=== PATIENT | female | born 1935 | race Caucasian/White ===

== ENCOUNTER → 2017-05-23 | Outpatient (CLI) | payer OTHER ==
[2015-09-03 12:00] VITALS: BP 117/70
[~2017-05-23] MED LIST: AMIO100T4 PO; AMIT25TA PO; BUME2TAB PO; CA C1TAB28 PO; CETI10TA16 PO; DOCU-109 PO; DULO60CA6 PO; FLUT16SP2 NS; FURO80TA72 PO; GLIM1TAB2 PO; HYDR-2762 PO; IPRA4AER IH; IRBE150T PO; LANS30CA PO; METO50TA2 PO; MOME17SP NS; NYST15PO9 TP; POLY17PO29 PO; PRAV20TA2 PO; RIVA10TA PO; SPIR25TA3 PO; WARF2TAB7 PO
--- NOTE | 2017-05-23 13:14 | KCIC ---
History: Right leg pain and swelling. Comparison: None. Findings: AP, lateral, and oblique views of the right knee. No acute fracture or dislocation is identified. Mild tricompartment degeneration is seen with marginal osteophyte formation. No joint effusion is identified. AP and lateral views of the right tibia and fibula, 3 images. No acute fracture or dislocation is identified. Tibiotalar degeneration is seen. Impression: No acute osseous abnormality identified in the right knee or right tibia and fibula. Electronically signed by: Chacorta Pratt MD (05/23/2017 1:11 PM) [place] [id number]
--- NOTE | 2017-05-23 13:14 | KCIC ---
CT CHEST WO CONTRAST dated 05/23/2017 10:30 AM Indication: Pulmonary nodule, chronic cough and shortness of air Comparison: There is no previous chest CT available. Technique: Noncontrast CT imaging was performed of the chest, multiplanar reconstruction images submitted. One or more of the following individualized dose reduction techniques were utilized for this examination: 1. Automated exposure control 2. Adjustment of the mA and/or kV according to patient size 3. Use of iterative reconstruction technique. Findings: There is left electronic cardiac device. There has been a median sternotomy. Main pulmonary artery is very dilated at 5.9 cm. There is coronary calcification. There is no lobar infiltrate, pleural or pericardial effusion, pneumothorax. Thoracic aortic caliber is within normal limits. There are some mediastinal nodes, right paratracheal node 1.2 cm short axis dimension somewhat prominent. There are collateral vessels in the region of the left breast. There is noncalcified right middle lobe nodule up to 1 cm axial image 130 series 2. Medial right lower lobe nodule up to 1.1 cm axial image 139 is not excluded although possibly due to volume averaging with the adjacent pulmonary vein and due to atelectasis. There is some centrilobular emphysema. There is bronchiectasis of the lower lobes bilaterally. There is nodular appearance of bilateral breast parenchyma greater on the left. IMPRESSION: 1. There is a 1 cm right middle lobe noncalcified nodule. Medial right lower lobe nodule is not excluded although possibly due to volume averaging with pulmonary vein and due to atelectasis. As per the Fleischner guidelines for pulmonary nodules, 3 month follow-up is recommended. Alternatively, PET/CT could be considered. There is mild mediastinal lymphadenopathy. 2. Main pulmonary artery is very dilated compatible with pulmonary hypertension. There is centrilobular emphysema and bilateral lower lobe bronchiectasis. 3. There is nodular appearance of bilateral breast parenchyma greater on the left better evaluated by mammography and ultrasound if needed if this has not been performed. Electronically signed by: Clinton De La Cruz MD (05/23/2017 1:11 PM) [facility]
== END | disposition home or self-care (01) ==
LOC: KCIC CT 10:06
PROVIDERS: ATTEND Family Medicine
DX: M79.604 Pain in right leg (principal); J43.2 Centrilobular emphysema; J47.9 Bronchiectasis, uncomplicated; I27.2 Other secondary pulmonary hypertension; M79.89 Other specified soft tissue disorders; R91.1 Solitary pulmonary nodule
CPT/HCPCS: 71250; 73562; 73590

== ENCOUNTER → 2017-07-20 | Outpatient (CLI) | payer OTHER ==
[2015-09-03 12:00] VITALS: BP 117/70
[2017-07-20 11:47] LABS: HEMATOCRIT 35.1 % (36.0-47.0)
[2017-07-20 12:09] LABS: ALBUMIN 3.9 g/dL (3.4-5.0); CALCIUM 9.2 mg/dL (8.5-10.1); CREATININE 1.8 mg/dL (0.6-1.0); GFR 26.9; MAGNESIUM 2.3 mg/dL (1.8-2.4); PHOSPHORUS 4.2 mg/dL (2.6-4.7); POTASSIUM 4.3 mmol/L (3.5-5.1)
[2017-07-20 12:10] LABS: % SAT IRON 23 % (15-34); IRON,SERUM 78 ug/dL (50-170)
[2017-07-20 19:13] LABS: PTH INTACT 76 pg/mL (15-65)
== END | disposition home or self-care (01) ==
LOC: LAB 11:10
PROVIDERS: ATTEND Nurse Practitioner Family
DX: I12.9 Hypertensive chronic kidney disease with stage 1 through stage 4 chronic kidney disease, or unspecified chronic kidney disease (principal); N18.3 Chronic kidney disease, stage 3 (moderate); I50.22 Chronic systolic (congestive) heart failure; E11.22 Type 2 diabetes mellitus with diabetic chronic kidney disease; M10.9 Gout, unspecified; D64.9 Anemia, unspecified; R60.0 Localized edema; R25.2 Cramp and spasm; Z68.38 Body mass index [BMI] 38.0-38.9, adult
CPT/HCPCS: 36415; 80069; 82043; 82570; 82607; 82728; 83540; 83550; 83735; 83970; 85014; 85018

== ENCOUNTER → 2017-09-13 | Outpatient (CLI) | payer OTHER ==
[2017-09-13 10:30] LABS: ALBUMIN 3.9 g/dL (3.4-5.0); ANION GAP 10 (6-14); BLOOD UREA NITROGEN 59 mg/dL (7-20); CALCIUM 9.4 mg/dL (8.5-10.1); CARBON DIOXIDE 28 mmol/L (21-32); CHLORIDE 99 mmol/L (98-107); CREATININE 2.1 mg/dL (0.6-1.0); GFR 22.5; GLUCOSE 213 mg/dL (70-99); PHOSPHORUS 3.8 mg/dL (2.6-4.7); POTASSIUM 4.6 mmol/L (3.5-5.1); SODIUM 137 mmol/L (136-145)
== END | disposition home or self-care (01) ==
LOC: LAB 09:43
DX: I12.9 Hypertensive chronic kidney disease with stage 1 through stage 4 chronic kidney disease, or unspecified chronic kidney disease (principal); N18.3 Chronic kidney disease, stage 3 (moderate); E11.22 Type 2 diabetes mellitus with diabetic chronic kidney disease; I50.22 Chronic systolic (congestive) heart failure; R60.0 Localized edema; Z68.38 Body mass index [BMI] 38.0-38.9, adult
CPT/HCPCS: 36415; 80069

== ENCOUNTER 2017-12-18 14:30 | Inpatient (IN) | payer OTHER ==
[2017-12-18 15:55] LABS: ADD MAN DIFF? NO
[2017-12-18 15:58] LABS: BASO # 0.1 x10^3/uL (0.0-0.2); BASO % 1 % (0-3); EOS # 0.3 x10^3/uL (0.0-0.7); EOS % 3 % (0-3); HEMOGLOBIN 11.6 g/dL (12.0-15.5); LYMPH # 1.6 x10^3/uL (1.0-4.8); LYMPH % 16 % (24-48); MEAN CORPUSCULAR HEMOGLOBIN 32 pg (25-35); MEAN CORPUSCULAR HGB CONC 34 g/dL (31-37); MEAN CORPUSCULAR VOLUME 93 fL (79-100); MONO # 0.6 x10^3/uL (0.0-1.1); MONO % 6 % (0-9); NEUT # 7.4 x10^3uL (1.8-7.7); NEUT % 74 % (31-73); PLATELET COUNT 212 x10^3/uL (140-400); RED BLOOD COUNT 3.65 x10^6/uL (3.50-5.40); WHITE BLOOD COUNT 10.1 x10^3/uL (4.0-11.0)
[2017-12-18 17:24] LABS: ANION GAP 11 (6-14); BLOOD UREA NITROGEN 93 mg/dL (7-20); BUN/CREATININE RATIO 30 (6-20); CALCIUM 8.9 mg/dL (8.5-10.1); CARBON DIOXIDE 26 mmol/L (21-32); CHLORIDE 99 mmol/L (98-107); CREATININE 3.1 mg/dL (0.6-1.0); GFR 14.4; GLUCOSE 154 mg/dL (70-99); SODIUM 136 mmol/L (136-145)
[2017-12-18 17:29] LABS: ALBUMIN 3.6 g/dL (3.4-5.0); ALK PHOS 124 U/L (46-116); ALT (SGPT) 25 U/L (14-59); AST (SGOT) 14 U/L (15-37); TOTAL BILIRUBIN 0.6 mg/dL (0.2-1.0); TOTAL PROTEIN 7.2 g/dL (6.4-8.2)
[2017-12-18 18:59] LABS: BILIRUBIN,URINE NEGATIVE (NEG); CLARITY,URINE CLEAR; COLOR,URINE YELLOW; GLUCOSE,URINE NEGATIVE (NEG); NITRITE,URINE NEGATIVE (NEG); PROTEIN,URINE NEGATIVE (NEG-TRACE); UROBILINOGEN,URINE 0.2 mg/dL (0.2 mg/dL)
[2017-12-18 19:19] LABS: BACTERIA,URINE MANY /HPF (0-FEW); HYALINE CASTS, URINE MODERATE /HPF; RBC,URINE 0 /HPF (0-2); SQUAMOUS EPITHELIAL CELL,UR MANY /LPF; WBC,URINE 20-40 /HPF (0-4)
[2017-12-18] MEDS: IV NORMAL SALINE 500ML BAG 500 ML IV (19:24)
[2017-12-18] MEDS: ONDANSETRON PF 4 MG/2 ML VIAL. IV (19:46)
[2017-12-18] MEDS: MORPHINE SULFATE 4 MG/ML DISP.SYRIN. IV (19:47)
[2017-12-18] MEDS: IV NORMAL SALINE 1000ML BAG 1,000 ML IV (20:40)
[2017-12-18] MEDS ORDERED: ACETAMINOPHEN 325 MG TABLET. PO (21:00)
[2017-12-18 21:09] LABS: POC GLUCOSE 117 mg/dL (70-99)
[2017-12-18] MEDS: ATORVASTATIN CALCIUM 10 MG TABLET. PO (21:44)
[2017-12-18] MEDS: DOCUSATE SODIUM 100 MG CAPSULE. PO (21:44)
[2017-12-18] MEDS: METOPROLOL TART IMMED RELEASE 50 MG TABLET. PO (21:45)
[2017-12-18] MEDS: NYSTATIN TOPICAL POWDER 15GM BOTTLE. TP (21:53)
[2017-12-18] MEDS: ENOXAPARIN 30 MG/0.3 ML SYRINGE. SQ (21:53)
[2017-12-18] MEDS: cefTRIAXone IV Push 1 GM VIAL. IVP (21:53)
[2017-12-18] MEDS ORDERED: DEXTROSE 50% 25 GM / 50ML DISP.SYRIN. IV (22:45)
[2017-12-19] MEDS: IV NORMAL SALINE 1000ML BAG 1,000 ML IV ×2 (04:56→10:15)
[2017-12-19 06:56] LABS: ANION GAP 15 (6-14); BLOOD UREA NITROGEN 90 mg/dL (7-20); CALCIUM 8.7 mg/dL (8.5-10.1); CARBON DIOXIDE 23 mmol/L (21-32); CHLORIDE 101 mmol/L (98-107); CREATININE 2.5 mg/dL (0.6-1.0); GFR 18.4; GLUCOSE 191 mg/dL (70-99); POTASSIUM 4.8 mmol/L (3.5-5.1); SODIUM 139 mmol/L (136-145)
[2017-12-19] MEDS: IPRATRPIUM/ALBUTEROL 0.5/2.5MG 3 ML NEBU. NEB (07:10)
[2017-12-19 08:26] LABS: POC GLUCOSE 147 mg/dL (70-99)
[2017-12-19] MEDS: CHOLECALCIFEROL (VITAMIN D3) 1,000 UNIT TABLET PO (08:56)
[2017-12-19] MEDS: ASPIRIN ENTERIC COATED 81 MG TABLET.DR. PO (08:56)
[2017-12-19] MEDS: DOCUSATE SODIUM 100 MG CAPSULE. PO ×3 (08:56→21:25)
[2017-12-19] MEDS: METOPROLOL TART IMMED RELEASE 50 MG TABLET. PO ×2 (08:57→21:25)
[2017-12-19] MEDS: FLUTICASONE 50MCG/NASAL SPRAY 16GM BOTTLE. NS (08:59)
[2017-12-19] MEDS: NYSTATIN TOPICAL POWDER 15GM BOTTLE. TP ×3 (08:59→22:18)
[2017-12-19] MEDS: POLYETHYLENE GLYCOL 3350 17 GM PACKET. PO (09:00)
[2017-12-19 11:06] LABS: POC GLUCOSE 190 mg/dL (70-99)
[2017-12-19 11:45] LABS: THYROID STIM HORMONE (TSH) 3.127 uIU/mL (0.358-3.74)
[2017-12-19] MEDS ORDERED: ALBUTEROL SULFATE 2.5 MG/3 ML NEBU. NEB (12:00)
[2017-12-19 14:36] LABS: POC GLUCOSE 143 mg/dL (70-99)
[2017-12-19 16:49] LABS: POC GLUCOSE 150 mg/dL (70-99)
[2017-12-19] MEDS: cefTRIAXone IV Push 1 GM VIAL. IVP (21:24)
[2017-12-19] MEDS: LACTOBACILLUS RHAMNOSUS GG 1 CAPSULE. PO (21:26)
[2017-12-19] MEDS: ATORVASTATIN CALCIUM 10 MG TABLET. PO (21:26)
[2017-12-19] MEDS: ENOXAPARIN 30 MG/0.3 ML SYRINGE. SQ (21:27)
[2017-12-20 00:57] LABS: POC GLUCOSE 154 mg/dL (70-99)
[2017-12-20 05:16] LABS: ADD MAN DIFF? NO
[2017-12-20 05:22] LABS: BASO % 1 % (0-3); EOS # 0.1 x10^3/uL (0.0-0.7); EOS % 2 % (0-3); HEMATOCRIT 32.8 % (36.0-47.0); HEMOGLOBIN 10.9 g/dL (12.0-15.5); LYMPH # 0.8 x10^3/uL (1.0-4.8); LYMPH % 12 % (24-48); MEAN CORPUSCULAR HEMOGLOBIN 31 pg (25-35); MEAN CORPUSCULAR HGB CONC 33 g/dL (31-37); MEAN CORPUSCULAR VOLUME 93 fL (79-100); MONO # 0.4 x10^3/uL (0.0-1.1); MONO % 5 % (0-9); NEUT # 5.4 x10^3uL (1.8-7.7); NEUT % 80 % (31-73); PLATELET COUNT 163 x10^3/uL (140-400); RED BLOOD COUNT 3.51 x10^6/uL (3.50-5.40); WHITE BLOOD COUNT 6.7 x10^3/uL (4.0-11.0)
[2017-12-20 05:49] LABS: ALBUMIN 3.4 g/dL (3.4-5.0); ALBUMIN/GLOBULIN RATIO 0.9 (1.0-1.7); ALK PHOS 129 U/L (46-116); ALT (SGPT) 20 U/L (14-59); ANION GAP 10 (6-14); AST (SGOT) 16 U/L (15-37); BLOOD UREA NITROGEN 46 mg/dL (7-20); BUN/CREATININE RATIO 31 (6-20); CALCIUM 9.5 mg/dL (8.5-10.1); CARBON DIOXIDE 27 mmol/L (21-32); CHLORIDE 107 mmol/L (98-107); CREATININE 1.5 mg/dL (0.6-1.0); GFR 33.2; GLUCOSE 154 mg/dL (70-99); POTASSIUM 3.9 mmol/L (3.5-5.1); SODIUM 144 mmol/L (136-145); TOTAL BILIRUBIN 0.6 mg/dL (0.2-1.0)
[2017-12-20 07:35] LABS: POC GLUCOSE 127 mg/dL (70-99)
[2017-12-20] MEDS: POLYETHYLENE GLYCOL 3350 17 GM PACKET. PO (09:00)
[2017-12-20] MEDS: FLUTICASONE 50MCG/NASAL SPRAY 16GM BOTTLE. NS (09:13)
[2017-12-20] MEDS: DOCUSATE SODIUM 100 MG CAPSULE. PO ×3 (09:14→20:31)
[2017-12-20] MEDS: LACTOBACILLUS RHAMNOSUS GG 1 CAPSULE. PO ×2 (09:14→20:31)
[2017-12-20] MEDS: ASPIRIN ENTERIC COATED 81 MG TABLET.DR. PO (09:15)
[2017-12-20] MEDS: CHOLECALCIFEROL (VITAMIN D3) 1,000 UNIT TABLET PO (09:16)
[2017-12-20] MEDS: METOPROLOL TART IMMED RELEASE 50 MG TABLET. PO ×2 (09:16→20:31)
[2017-12-20] MEDS: NYSTATIN TOPICAL POWDER 15GM BOTTLE. TP ×3 (09:17→20:31)
[2017-12-20 11:43] LABS: POC GLUCOSE 135 mg/dL (70-99)
[2017-12-20 14:25] LABS: ADD MAN DIFF? NO
[2017-12-20 14:28] LABS: BASO # 0.1 x10^3/uL (0.0-0.2); BASO % 1 % (0-3); EOS # 0.2 x10^3/uL (0.0-0.7); EOS % 2 % (0-3); HEMATOCRIT 36.1 % (36.0-47.0); LYMPH % 14 % (24-48); MEAN CORPUSCULAR HEMOGLOBIN 31 pg (25-35); MEAN CORPUSCULAR HGB CONC 33 g/dL (31-37); MEAN CORPUSCULAR VOLUME 94 fL (79-100); MONO # 0.4 x10^3/uL (0.0-1.1); MONO % 6 % (0-9); NEUT # 5.7 x10^3uL (1.8-7.7); NEUT % 77 % (31-73); PLATELET COUNT 174 x10^3/uL (140-400); RED BLOOD COUNT 3.85 x10^6/uL (3.50-5.40); RED CELL DISTRIBUTION WIDTH 16.9 % (11.5-14.5); WHITE BLOOD COUNT 7.4 x10^3/uL (4.0-11.0)
[2017-12-20 14:43] LABS: ALBUMIN 3.7 g/dL (3.4-5.0); ANION GAP 11 (6-14); BLOOD UREA NITROGEN 40 mg/dL (7-20); CALCIUM 9.3 mg/dL (8.5-10.1); CARBON DIOXIDE 26 mmol/L (21-32); CHLORIDE 106 mmol/L (98-107); CREATININE 1.5 mg/dL (0.6-1.0); GFR 33.2; GLUCOSE 152 mg/dL (70-99); PHOSPHORUS 2.8 mg/dL (2.6-4.7); POTASSIUM 3.9 mmol/L (3.5-5.1); SODIUM 143 mmol/L (136-145)
[2017-12-20 16:38] LABS: POC GLUCOSE 132 mg/dL (70-99)
[2017-12-20 20:28] LABS: POC GLUCOSE 128 mg/dL (70-99)
[2017-12-20] MEDS: ENOXAPARIN 30 MG/0.3 ML SYRINGE. SQ (20:31)
[2017-12-20] MEDS: ATORVASTATIN CALCIUM 10 MG TABLET. PO (20:31)
[2017-12-20] MEDS: cefTRIAXone IV Push 1 GM VIAL. IVP (20:31)
[2017-12-20 22:14] LABS: CALCIUM PTH 9.7 mg/dL (8.7-10.3); CREATININE PTH 1.29 mg/dL (0.57-1.00); PHOSPHORUS PTH 2.6 mg/dL (2.5-4.5); PTH INTACT 27 pg/mL (15-65); eGFR AFRICAN-AMER 45 (>59); eGFR NON AFRICAN-AMER 39 (>59)
[2017-12-21] MEDS: CHOLECALCIFEROL (VITAMIN D3) 1,000 UNIT TABLET PO (08:27)
[2017-12-21] MEDS: FLUTICASONE 50MCG/NASAL SPRAY 16GM BOTTLE. NS (08:27)
[2017-12-21] MEDS: METOPROLOL TART IMMED RELEASE 50 MG TABLET. PO (08:28)
[2017-12-21] MEDS: LACTOBACILLUS RHAMNOSUS GG 1 CAPSULE. PO (08:28)
[2017-12-21] MEDS: DOCUSATE SODIUM 100 MG CAPSULE. PO ×2 (08:28→14:00)
[2017-12-21] MEDS: ASPIRIN ENTERIC COATED 81 MG TABLET.DR. PO (08:28)
[2017-12-21] MEDS: POLYETHYLENE GLYCOL 3350 17 GM PACKET. PO (08:29)
[2017-12-21] MEDS: NYSTATIN TOPICAL POWDER 15GM BOTTLE. TP ×2 (08:30→14:07)
[2017-12-21 11:48] LABS: POC GLUCOSE 116 mg/dL (70-99)
[2017-12-21 13:23] LABS: ALBUMIN 3.6 g/dL (3.4-5.0); ALBUMIN/GLOBULIN RATIO 1.2 (1.0-1.7); ALK PHOS 132 U/L (46-116); ALT (SGPT) 27 U/L (14-59); ANION GAP 6 (6-14); AST (SGOT) 24 U/L (15-37); BLOOD UREA NITROGEN 27 mg/dL (7-20); BUN/CREATININE RATIO 21 (6-20); CALCIUM 9.4 mg/dL (8.5-10.1); CARBON DIOXIDE 29 mmol/L (21-32); CHLORIDE 105 mmol/L (98-107); CREATININE 1.3 mg/dL (0.6-1.0); GFR 39.2; GLUCOSE 171 mg/dL (70-99); SODIUM 140 mmol/L (136-145); TOTAL BILIRUBIN 0.7 mg/dL (0.2-1.0); TOTAL PROTEIN 6.7 g/dL (6.4-8.2)
== END 2017-12-21 16:00 | disposition home health service (06) | DRG 917 ==
LOC: ER 14:30 → 5 NORTH 18:10
DX: T50.901A Poisoning by unspecified drugs, medicaments and biological substances, accidental (unintentional), initial encounter (principal); G93.41 Metabolic encephalopathy; N17.9 Acute kidney failure, unspecified; N39.0 Urinary tract infection, site not specified; I42.9 Cardiomyopathy, unspecified; E11.40 Type 2 diabetes mellitus with diabetic neuropathy, unspecified; E11.22 Type 2 diabetes mellitus with diabetic chronic kidney disease; E11.51 Type 2 diabetes mellitus with diabetic peripheral angiopathy without gangrene; I48.91 Unspecified atrial fibrillation; E78.00 Pure hypercholesterolemia, unspecified; F03.90 Unspecified dementia, unspecified severity, without behavioral disturbance, psychotic disturbance, mood disturbance, and anxiety; E78.5 Hyperlipidemia, unspecified; I27.20 Pulmonary hypertension, unspecified; E55.9 Vitamin D deficiency, unspecified; E66.9 Obesity, unspecified; N18.9 Chronic kidney disease, unspecified; F32.9 Major depressive disorder, single episode, unspecified; R47.81 Slurred speech; I25.10 Atherosclerotic heart disease of native coronary artery without angina pectoris; I12.9 Hypertensive chronic kidney disease with stage 1 through stage 4 chronic kidney disease, or unspecified chronic kidney disease; J40 Bronchitis, not specified as acute or chronic; J47.9 Bronchiectasis, uncomplicated; Z90.49 Acquired absence of other specified parts of digestive tract; Z95.1 Presence of aortocoronary bypass graft; Z79.82 Long term (current) use of aspirin; Z90.710 Acquired absence of both cervix and uterus; Z91.81 History of falling; Z91.041 Radiographic dye allergy status
CPT/HCPCS: 36415; 51701; 70450; 71045; 71250; 76770; 78070; 80048; 80053; 80069; 81001; 82306; 82962; 83970; 84443; 85025; 87040; 87086; 93005; 93306; 94640; 94760; 95816; 96374; 97116-GP; 97162-GP; 97166-GO; 97530-GP; 97535-GO; 99285-25; A9500; J0696; J1650; J7030; J7040; J7620

== ENCOUNTER 2018-06-25 14:19 | Emergency (ER) | payer MEDICARE, OTHER ==
[~2018-06-25] VITALS: Ht 165.1 cm; Wt 104.3 kg
[~2018-06-25 14:19] MED LIST changes: +ALLO300T PO; +ASPI-482 PO; +CIPR250T PO; +DILT120C80 PO; +FURO20TA3 PO; +METO100T7 PO; -METO50TA2 PO; +METO50TA6 PO; +POTA10TA12 PO; -SPIR25TA3 PO; +SPIR25TA5 PO; +VALS40TA2 PO; -WARF2TAB7 PO; +WARF2TAB96 PO
--- NOTE | 2018-06-25 16:26 | RAD ---
CT HEAD WITHOUT CONTRAST 06/25/2018 4:03 PM Indication: FALL PREV SENT Comparison: CT head without contrast December 19, 2017 Procedure: Multidetector CT imaging of the head was performed without the administration of contrast. Findings: There is no evidence of acute intracranial hemorrhage. There is no evidence of acute territorial infarction. Global atrophic changes are stable. Periventricular deep white matter hypoattenuation consistent with chronic small vessel disease is also unchanged. No mass effect or midline shift is identified . The ventricles and basilar cisterns have a stable appearance. No osseous changes are identified. Impression: No evidence of acute intracranial abnormality or acute change from prior exam CT DOSING PQRS STATEMENT: One or more of the following individualized dose reduction techniques were utilized for this examination: 1. Automated exposure control 2. Adjustment of the mA and/or kV according to patient size 3. Use of iterative reconstruction technique Electronically signed by: Osabldo Doe MD (06/25/2018 4:22 PM) [facility]
--- NOTE | 2018-06-25 16:48 | RAD ---
Indication: Trauma TECHNIQUE: Multiple views of the right hip joint Comparison: None FINDINGS/ impression: Status post total left hip arthroplasty. No acute fracture or dislocation. SI joints within normal limits. Electronically signed by: Naif Cabrera DO (06/25/2018 4:45 PM) [facility]
--- NOTE | 2018-06-25 16:51 | RAD ---
3 views of the lumbar spine 06/25/2018 INDICATION: Low back pain following fall. COMPARISON STUDY: None available FINDINGS: Some rotation noted on AP view. No evidence of acute fracture or acute alignment abnormality is identified. Vertebral body heights appear maintained with respect to comparison study. Facet arthrosis and degenerative disc space disease is similar. Mild grade 1 anterolisthesis is seen at L4-L5 and L5 -S1. Left hip arthroplasty noted. Cholecystectomy is noted. No acute soft tissue changes are seen. IMPRESSION: Similar degenerative changes of the lumbar spine without evidence of acute fracture or alignment abnormality Electronically signed by: Osbaldo Doe MD (06/25/2018 4:48 PM) [facility]
--- NOTE | 2018-06-25 16:51 | RAD ---
History: Trauma, fall today, pain. Comparison: None. Findings: AP, lateral, and oblique views of the right foot. Mild-moderate hallux valgus is seen. Mild-moderate 1st MTP degeneration is present. No acute fracture or dislocation is identified. Chronic cortical/periosteal thickening is seen involving the 2nd through 4th metatarsals. Large Achilles tendon insertional enthesophyte is seen. Small plantar calcaneal enthesophyte is present. Dorsal talar osteophyte is seen. Impression: No acute osseous traumatic injury identified. Electronically signed by: Chacorta Pratt MD (06/25/2018 4:48 PM) [place] [id number]
--- NOTE | 2018-06-25 16:54 | RAD ---
3 views right hand 06/25/2018 4:10 PM Indication: ER PATIENT. TRAUMA FALL TODAY. PAIN IN THE RIGHT HAND. NO PRIORS Comparison: None Findings: There is no acute fracture or dislocation. Articular surfaces are uninterrupted. Soft tissues are unremarkable. Impression: No evidence of acute osseous abnormality. Electronically signed by: Osbaldo Doe MD (06/25/2018 4:51 PM) [facility]
--- NOTE | 2018-06-25 17:14 | PHYS DOC ---
Past Medical History Past Medical History: A-Fib, Arrhythmia, Diabetes-Type II, High Cholesterol, Hypertension, Renal Disease, Other Additional Past Medical Histor: NEUROPATHY,PAD Past Surgical History: Cholecystectomy, Coronary Bypass Surgery, Hysterectomy, Pacemaker Alcohol Use: None Drug Use: None Adult General Chief Complaint Chief Complaint: MECHANICAL FALL HPI HPI Patient is a 83 year old female with a history of diabetes2, hypertension, A. fib, high cholesterol, who presents today to be evaluated status post falling. Patient states on Sunday last week she was sitting in her wheelchair when she fell, patient denies hitting her head on the ground, denies any neck pain. She is complaining of mild right hand pain with swelling, right foot pain and right low back pain. Patient states the pain is worse on weight-bearing as well as range of motion. Review of Systems Review of Systems Constitutional: Denies fever or chills [] Eyes: Denies change in visual acuity, redness, or eye pain [] HENT: Denies nasal congestion or sore throat [] Respiratory: Denies cough or shortness of breath [] Cardiovascular: No additional information not addressed in HPI [] GI: Denies abdominal pain, nausea, vomiting, bloody stools or diarrhea [] : Denies dysuria or hematuria [] Musculoskeletal: Reports low back pain, right hand pain with swelling. Integument: Denies rash or skin lesions [] Neurologic: Denies headache, focal weakness or sensory changes [] All other systems were reviewed and found to be within normal limits, except as documented in this note. Allergies Allergies Allergies Coded Allergies Type Severity Reaction Last Updated Verified Iodinated Contrast- Oral and IV Dye Allergy Intermediate HIVES 09/03/15 Yes codeine Allergy Intermediate 12/18/17 No Physical Exam Physical Exam Constitutional: Well developed, well nourished, no acute distress, non-toxic appearance. [] HENT: Normocephalic, atraumatic, bilateral external ears normal, oropharynx moist, no oral exudates, nose normal. [] Eyes: PERRLA, EOMI, conjunctiva normal, no discharge. [] Neck: Normal range of motion, no tenderness, supple, no stridor. [] Cardiovascular:Heart rate regular rhythm, no murmur [] Lungs & Thorax: Bilateral breath sounds clear to auscultation [] Abdomen: Bowel sounds normal, soft, no tenderness, no masses, no pulsatile masses. [] Skin: Warm, dry, no erythema, no rash. [] Back: Slight tenderness on palpation of the right SI joint, no midline lumbar spine tenderness, no CVA tenderness. [] Extremities: Right hand with mild soft tissue swelling on the dorsal aspect. No tenderness to the scaphoid, no tenderness to the hand. Full range of motion to the right hand. Full range of motion to the right fingers. Adequate radial medial and ulnar sensation to the right upper extremity. Cap refill less than 2 seconds the right fingers. Sensation intact to the right upper extremity. Bilateral lower extremities with chronic lymphedema. Tenderness on palpation of the right arc of foot no tenderness directly on the navicular bone or the base of the fifth metatarsal of the right foot. Full range of motion to the right foot. Neurologic: Alert and oriented X 3, normal motor function, normal sensory function, no focal deficits noted. [] Psychologic: Affect normal, judgement normal, mood normal. [] Current Patient Data Vital Signs Vital Signs Date Time Temp Pulse Resp B/P (MAP) Pulse Ox O2 Delivery O2 Flow Rate FiO2 06/25/18 15:40 97.8 88 18 142/62 (88) 97 Room Air 97.8 EKG EKG [] Radiology/Procedures Radiology/Procedures []PROCEDURE: FOOT RIGHT 3V History: Trauma, fall today, pain. Comparison: None. Findings: AP, lateral, and oblique views of the right foot. Mild-moderate hallux valgus is seen. Mild-moderate 1st MTP degeneration is present. No acute fracture or dislocation is identified. Chronic cortical/periosteal thickening is seen involving the 2nd through 4th metatarsals. Large Achilles tendon insertional enthesophyte is seen. Small plantar calcaneal enthesophyte is present. Dorsal talar osteophyte is seen. Impression: No acute osseous traumatic injury identified. Electronically signed by: Chacorta Oliver MD (06/25/2018 4:48 PM) [facility] DICTATED and SIGNED BY: CHACORTA OLIVER MD DATE: 06/25/18 1644 PROCEDURE: HAND RIGHT 3V 3 views right hand 06/25/2018 4:10 PM Indication: ER PATIENT. TRAUMA FALL TODAY. PAIN IN THE RIGHT HAND. NO PRIORS Comparison: None Findings: There is no acute fracture or dislocation. Articular surfaces are uninterrupted. Soft tissues are unremarkable. Impression: No evidence of acute osseous abnormality. Electronically signed by: Osbaldo Santos MD (06/25/2018 4:51 PM) [facility] DICTATED and SIGNED BY: OSBALDO SANTOS MD DATE: 06/25/181648 PROCEDURE: CT HEAD WO CONTRAST CT HEAD WITHOUT CONTRAST 06/25/2018 4:03 PM Indication: FALL PREV SENT Comparison: CT head without contrast December 19, 2017 Procedure: Multidetector CT imaging of the head was performed without the administration of contrast. Findings: There is no evidence of acute intracranial hemorrhage. There is no evidence of acute territorial infarction. Global atrophic changes are stable. Periventricular deep white matter hypoattenuation consistent with chronic small vessel disease is also unchanged. No mass effect or midline shift is identified . The ventricles and basilar cisterns have a stable appearance. No osseous changes are identified. Impression: No evidence of acute intracranial abnormality or acute change from prior exam CT DOSING PQRS STATEMENT: One or more of the following individualized dose reduction techniques were utilized for this examination: 1. Automated exposure control 2. Adjustment of the mA and/or kV according to patient size 3. Use of iterative reconstruction technique Electronically signed by: Osbaldo Santos MD (06/25/2018 4:22 PM) [facility] DICTATED and SIGNED BY: OSBALDO SANTOS MD DATE: 06/25/188 PROCEDURE: HIP RIGHT 2V WITH PELVIS Indication: Trauma TECHNIQUE: Multiple views of the right hip joint Comparison: None FINDINGS/ impression: Status post total left hip arthroplasty. No acute fracture or dislocation. SI joints within normal limits. Electronically signed by: Naif Cabrera DO (06/25/2018 4:45 PM) [facility] DICTATED and SIGNED BY: NAIF CABRERA DO DATE: 06/25/181642 Course & Med Decision Making Course & Med Decision Making Pertinent Labs and Imaging studies reviewed. (See chart for details) This is a 83-year-old female patient who presents to the ED today status post falling on Sunday which is 5 days ago, she is complaining of right hand pain and swelling, low back pain. No loss of consciousness, CT of the head is negative for any acute findings. Lumbar spine x-rays, right hip x-rays with pelvic, right hand x-rays interpreted by radiologist are negative for any acute findings. Patient was discharged with instructions to follow-up with the PCP as needed. Given prescription for diclofenac cream. Ice elevation encouraged. Dragon Disclaimer Dragon Disclaimer This electronic medical record was generated, in whole or in part, using a voice recognition dictation system. Departure Departure Impression: Primary Impression: Fall from wheelchair Additional Impressions: Lumbar contusion Sprain of right hand Right foot pain Disposition: HOME, SELF-CARE Condition: STABLE Referrals: RORO BARON MD (PCP) Follow-up in one week Patient Instructions: Contusion, Cogh-do-Vstr, Fall Prevention and Home Safety , Joint Sprain Additional Instructions: You were evaluated in the emergency room after falling. Your x-rays and CT of the head are negative for any acute findings. Follow-up with primary care doctor in the next 1-2 weeks. Ice elevate the affected areas. Scripts Diclofenac Sodium (VOLTAREN) 100 Gm Gel..gram. 1 GM TP QID, #100 GM 0 Refills Prov: JUAN MIGUEL PALMER APRN 06/25/18 Problem Qualifiers Primary Impression: Fall from wheelchair Encounter type: initial encounter Qualified Codes: W05.0XXA - Fall from non- moving wheelchair, initial encounter Additional Impressions: Lumbar contusion Encounter type: initial encounter Qualified Codes: S30.0XXA - Contusion of lower back and pelvis, initial encounter Sprain of right hand Encounter type: initial encounter Qualified Codes: S63.91XA - Sprain of unspecified part of right wrist and hand, initial encounter JUAN MIGUEL PALMER APRN Jun 25, 2018 17:14
[2018-06-25] MEDS ORDERED: DICL100G18 TP (17:35)
[2018-06-25 17:40] VITALS: BP 120/51
== END 2018-06-25 17:45 | disposition home or self-care (01) ==
LOC: ER 14:19
DX: S63.91XA Sprain of unspecified part of right wrist and hand, initial encounter (principal); S30.0XXA Contusion of lower back and pelvis, initial encounter; M79.671 Pain in right foot; E78.00 Pure hypercholesterolemia, unspecified; E11.40 Type 2 diabetes mellitus with diabetic neuropathy, unspecified; I10 Essential (primary) hypertension; I48.91 Unspecified atrial fibrillation; Z90.710 Acquired absence of both cervix and uterus; Z95.5 Presence of coronary angioplasty implant and graft; Z95.0 Presence of cardiac pacemaker; Z90.49 Acquired absence of other specified parts of digestive tract; Z88.5 Allergy status to narcotic agent; Z91.041 Radiographic dye allergy status; W05.0XXA Fall from non-moving wheelchair, initial encounter; Y93.89 Activity, other specified; Y92.89 Other specified places as the place of occurrence of the external cause; Y99.8 Other external cause status
CPT/HCPCS: 70450; 72100; 73130; 73502; 73630; 99284-25

== ENCOUNTER → 2018-07-17 | Outpatient (CLI) | payer OTHER ==
[2018-06-25 17:40] VITALS: BP 120/51
[~2018-07-17] MED LIST changes: +DICL100G18 TP; +LEVO500T59 PO
[2018-07-17 12:48] LABS: BASO # 0.1 x10^3/uL (0.0-0.2); BASO % 1 % (0-3); EOS # 0.3 x10^3/uL (0.0-0.7); EOS % 3 % (0-3); HEMATOCRIT 37.2 % (36.0-47.0); HEMOGLOBIN 12.7 g/dL (12.0-15.5); LYMPH # 1.6 x10^3/uL (1.0-4.8); LYMPH % 16 % (24-48); MEAN CORPUSCULAR HEMOGLOBIN 30 pg (25-35); MEAN CORPUSCULAR HGB CONC 34 g/dL (31-37); MEAN CORPUSCULAR VOLUME 88 fL (79-100); MONO # 0.6 x10^3/uL (0.0-1.1); MONO % 6 % (0-9); NEUT # 7.2 x10^3uL (1.8-7.7); NEUT % 74 % (31-73); PLATELET COUNT 185 x10^3/uL (140-400); RED BLOOD COUNT 4.21 x10^6/uL (3.50-5.40); RED CELL DISTRIBUTION WIDTH 15.4 % (11.5-14.5); WHITE BLOOD COUNT 9.8 x10^3/uL (4.0-11.0)
[2018-07-17 13:09] LABS: ALBUMIN 3.5 g/dL (3.4-5.0); CREATININE 1.6 mg/dL (0.6-1.0); GFR 30.8; MAGNESIUM 1.9 mg/dL (1.8-2.4); PHOSPHORUS 3.9 mg/dL (2.6-4.7); POTASSIUM 3.7 mmol/L (3.5-5.1)
[2018-07-17 23:11] LABS: CREAT RD UR 27.3 mg/dL (Not Estab.); MICRO CREAT RATIO 34.4 mg/g creat (0.0-30.0); MICROALB RD UR 9.4 ug/mL (Not Estab.); UR PROTEIN RD 4.7 mg/dL (Not Estab.)
[2018-07-18 00:10] LABS: CALCIUM PTH 9.3 mg/dL (8.7-10.3); CREATININE PTH 1.36 mg/dL (0.57-1.00); PHOSPHORUS PTH 3.9 mg/dL (2.5-4.5); PTH INTACT 81 pg/mL (15-65)
== END | disposition home or self-care (01) ==
LOC: LAB 12:22
PROVIDERS: ATTEND Internal Medicine Nephrology
DX: I13.0 Hypertensive heart and chronic kidney disease with heart failure and stage 1 through stage 4 chronic kidney disease, or unspecified chronic kidney disease (principal); E11.22 Type 2 diabetes mellitus with diabetic chronic kidney disease; I50.22 Chronic systolic (congestive) heart failure; N18.3 Chronic kidney disease, stage 3 (moderate); R60.0 Localized edema; Z68.38 Body mass index [BMI] 38.0-38.9, adult
CPT/HCPCS: 36415; 80069; 82043; 82570; 83735; 83970; 84156; 85025

== ENCOUNTER 2018-07-18 10:52 | Emergency (ER) | payer OTHER ==
[~2018-07-18] VITALS: Ht 165.1 cm; Wt 99.8 kg
[~2018-07-18 10:52] MED LIST changes: -LEVO500T59 PO
[2018-07-18] MEDS ORDERED: IV NORMAL SALINE 500ML BAG 500 ML IV ONE (11:30)
[2018-07-18] MEDS ORDERED: LEVO500T59 PO (12:07)
[2018-07-18 12:12] VITALS: BP 155/68
--- NOTE | 2018-07-18 12:54 | PHYS DOC ---
Past Medical History Past Medical History: A-Fib, Arrhythmia, Diabetes-Type II, High Cholesterol, Hypertension, Renal Disease, Other Additional Past Medical Histor: NEUROPATHY,PAD Past Surgical History: Cholecystectomy, Coronary Bypass Surgery, Hysterectomy, Pacemaker Alcohol Use: None Drug Use: None Adult General Chief Complaint Chief Complaint: PAIN ON URINATION [facility] HPI Patient is a 83 year old female who presents with dysuria. Patient began having dysuria over the last 24 hours. Incidentally, she had labs done at this hospital yesterday. She also had a urinalysis. Review of the electronic medical record reveals that the patient did have findings of urinary tract infection. According to family, the patient's sleep routine was disrupted yesterday as she had a very busy day in preparation for the holiday. Patient did have some confusion about the time of day around 2:00 this morning. She does live in an assisted care facility. She is accompanied by her daughter today who states she is at baseline health currently and has no acute concerns regarding any type of altered mental status. Denies fever or chills. No abdominal pain. She does have urinary frequency and dysuria which is not normal. Review of Systems Review of Systems Constitutional: Denies fever Eyes: Denies HENT: Denies Respiratory: Denies cough Cardiovascular: No additional information not addressed in HPI GI: Denies abdominal pain : dysuria, urinary frequency Musculoskeletal: Denies back pain Integument: Denies rash Neurologic: Denies headache All other systems were reviewed and found to be within normal limits, except as documented in this note. Current Medications Current Medications Current Medications Medications (Trade) Dose Ordered Sig/Miley Start Time Stop Time Status Last Admin Dose Admin Ceftriaxone Sodium 50 ml @ 100 mls/hr 1X ONCE 07/18/18 11:30 07/18/18 11:59 DC 07/18/18 11:35 100 MLS/HR Sodium Chloride 500 ml @ 500 mls/hr 1X ONCE 07/18/18 11:30 07/18/18 12:29 DC 07/18/18 11:38 500 MLS/HR Allergies Allergies Allergies Coded Allergies Type Severity Reaction Last Updated Verified Iodinated Contrast- Oral and IV Dye Allergy Intermediate HIVES 09/03/15 Yes codeine Allergy Intermediate 12/18/17 No Physical Exam Physical Exam Constitutional: Well developed, well nourished, no acute distress, non-toxic appearance HENT: Normocephalic, atraumatic, bilateral external ears normal, oropharynx moist Eyes: PERRLA, EOMI, conjunctiva normal Neck: Normal range of motion, no tenderness Cardiovascular:Heart rate regular rhythm, no murmur Lungs & Thorax: Bilateral breath sounds clear Abdomen: Bowel sounds normal, soft, no tenderness Skin: Warm, dry, no erythema Back: No tenderness, no CVA tenderness Extremities: No edema Neurologic: Alert and oriented X 3, normal neuro examination Psychologic: Affect normal Current Patient Data Vital Signs Vital Signs Date Time Temp Pulse Resp B/P (MAP) Pulse Ox O2 Delivery O2 Flow Rate FiO2 07/18/18 12:12 74 155/68 (97) 95 Room Air 07/18/18 11:03 16 07/18/18 10:52 98.5 98.5 EKG EKG [] Radiology/Procedures Radiology/Procedures [] Course & Med Decision Making Course & Med Decision Making Pertinent Labs and Imaging studies reviewed. (See chart for details) Department for also UTI. The urine specimen which was collected yesterday was indeed infected. Today, no new UA was completed. Urine culture was added to her lab panel. In the ER, she was given 1 g Rocephin IV along with a gentle fluid bolus. She was discharged home with Levaquin 500 mg daily. Patient is advised to follow-up with her primary care doctor or return to the ER for any new or worsening symptoms. She is accompanied by her daughter today who will be driving her home. Dragon Disclaimer Dragon Disclaimer This electronic medical record was generated, in whole or in part, using a voice recognition dictation system. Departure Departure Impression: Primary Impression: Urinary tract infection Disposition: 01 HOME, SELF-CARE Condition: GOOD Patient Instructions: Urinary Tract Infection Scripts Levofloxacin (LEVAQUIN) 500 Mg Tablet 500 MG PO DAILY for 5 Days, #5 TAB Prov: EVELYNE MICHAELS DO 07/18/18 EVELYNE MICHAELS DO Jul 18, 2018 12:54
== END 2018-07-18 13:13 | disposition home or self-care (01) ==
LOC: ER 10:52
DX: N39.0 Urinary tract infection, site not specified (principal); R41.0 Disorientation, unspecified; I48.91 Unspecified atrial fibrillation; E78.00 Pure hypercholesterolemia, unspecified; E11.40 Type 2 diabetes mellitus with diabetic neuropathy, unspecified; E11.51 Type 2 diabetes mellitus with diabetic peripheral angiopathy without gangrene; N28.9 Disorder of kidney and ureter, unspecified; I10 Essential (primary) hypertension; Z90.49 Acquired absence of other specified parts of digestive tract; Z90.710 Acquired absence of both cervix and uterus; Z95.5 Presence of coronary angioplasty implant and graft; Z95.0 Presence of cardiac pacemaker; Z91.041 Radiographic dye allergy status; Z88.5 Allergy status to narcotic agent
CPT/HCPCS: 87086; 96365; 99283; J0690; J7040

== ENCOUNTER 2018-09-29 08:57 | Emergency (ER) | payer OTHER ==
[~2018-09-29] VITALS: Ht 166.4 cm; Wt 97.5 kg
[~2018-09-29 08:57] MED LIST changes: -DILT120C80 PO; +DILT120C85 PO; -HYDR-2762 PO; +HYDR-2765 PO; +LEVO500T59 PO
[2018-09-29 09:21] LABS: BILIRUBIN,URINE NEGATIVE (NEG); CLARITY,URINE TURBID; COLOR,URINE AMBER; NITRITE,URINE POSITIVE (NEG); PROTEIN,URINE 30 mg/dL (NEG-TRACE)
[2018-09-29 09:39] LABS: BACTERIA,URINE FEW /HPF (0-FEW); RBC,URINE OCC /HPF (0-2); SQUAMOUS EPITHELIAL CELL,UR OCC /LPF; WBC,URINE TNTC /HPF (0-4)
[2018-09-29] MEDS ORDERED: CEPH500T PO (10:04)
--- NOTE | 2018-09-29 10:04 | PHYS DOC ---
Past Medical History Past Medical History: A-Fib, Arrhythmia, Diabetes-Type II, High Cholesterol, Hypertension, Renal Disease, Other Additional Past Medical Histor: NEUROPATHY,PAD (DEYA PALMER APRN) Past Surgical History: Cholecystectomy, Coronary Bypass Surgery, Hysterectomy, Pacemaker (DEYA PALMER APRN) Alcohol Use: None Drug Use: None (DEYA PALMER APRN) Adult General Chief Complaint Chief Complaint: PAIN ON URINATION [facility] HPI Patient is a 83 year old female who presents to the ER with complaints of pain with urination for the last week. Pt denies any fever, abdominal pain, nausea, vomiting, incontinence, back pain, diarrhea, or hematuria. Pt reports taking azo at home with her last dose being on . She reports increased frequency at this time. (DEYA PALMER APRN) Review of Systems Review of Systems Constitutional: Denies fever or chills [] HENT: Denies nasal congestion or sore throat [] Respiratory: Denies cough or shortness of breath [] Cardiovascular: No additional information not addressed in HPI [] GI: Denies abdominal pain, nausea, vomiting, or diarrhea [] : See HPI Musculoskeletal: Denies back pain Integument: Denies rash or skin lesions [] Neurologic: Denies headache, focal weakness or sensory changes [] (DEYA PALMER APRN) Allergies Allergies Allergies Coded Allergies Type Severity Reaction Last Updated Verified Iodinated Contrast- Oral and IV Dye Allergy Intermediate HIVES 09/03/15 Yes codeine Allergy Intermediate 12/18/17 No (JEFF KENDALL DO) Physical Exam Physical Exam Constitutional: Well developed, well nourished, no acute distress, non-toxic appearance. [] HENT: Normocephalic, atraumatic, bilateral external ears normal, oropharynx moist, no oral exudates, nose normal. [] Eyes: conjunctiva normal, no discharge. [] Neck: Normal range of motion, no stridor. [] Abdomen: soft, no tenderness, no masses, no pulsatile masses. [] Skin: Warm, dry, no erythema, no rash. [] Back: No CVA tenderness. [] Extremities: No cyanosis, no clubbing, ROM intact Neurologic: Alert and oriented X 3, normal motor function, normal sensory function, no focal deficits noted. [] Psychologic: Affect normal, judgement normal, mood normal. [] (DEYA PALMER APRN) Current Patient Data Vital Signs Vital Signs Date Time Temp Pulse Resp B/P (MAP) Pulse Ox O2 Delivery O2 Flow Rate FiO2 09/29/18 10:12 66 16 139/62 (87) 98 Room Air 09/29/18 09:10 97.5 97.5 (JEFF KENDALL DO) Lab Values Laboratory Tests Test 09/29/18 09:08 Urine Collection Type Unknown Urine Color [place]oxie Urine Clarity Turbid Urine pH 6.0 Urine Specific [place] 1.015 Urine Protein 30 mg/dL (NEG-TRACE) Urine Glucose (UA) Negative mg/dL (NEG) Urine Ketones (Stick) Negative mg/dL (NEG) Urine Blood Moderate (NEG) Urine Nitrite Positive (NEG) Urine Bilirubin Negative (NEG) Urine Urobilinogen Dipstick 1.0 mg/dL (0.2 mg/dL) Urine Leukocyte Esterase Large (NEG) Urine RBC Occ /HPF (0-2) Urine WBC Tntc /HPF (0-4) Urine Squamous Epithelial Cells Occ /LPF Urine Bacteria Few /HPF (0-FEW) (JEFF KENDALL DO) EKG EKG [] (DEYA PALMER APRN) Radiology/Procedures Radiology/Procedures [] (DEYA PALMER APRN) Course & Med Decision Making Course & Med Decision Making Pertinent Labs and Imaging studies reviewed. (See chart for details) Dx: UTI Prescription written for keflex. Avoid bladder irritants, increase clear fluids. Follow up with PCP if sx persist, return to the ER if sx worsen. Patient verbalized an understanding of home care, medications, follow-up, and return to ED instructions and was in agreement with the plan of care. (DEYA PALMER APRN) Dragon Disclaimer Dragon Disclaimer This electronic medical record was generated, in whole or in part, using a voice recognition dictation system. (DEYA PALMER MESSENGER OFFICE) Departure Departure Impression: Primary Impression: UTI (urinary tract infection) Disposition: 01 HOME, SELF-CARE Condition: STABLE Referrals: RORO BARON MD (PCP) Patient Instructions: Urinary Tract Infection, [id number] Additional Instructions: Fill prescription(s) and use as directed. Avoid bladder irritants such as caffeine, carbonation, and spicy foods. Increase clear fluids. Follow up with your primary care doctor if symptoms persist, return to the ER if symptoms worsen. Scripts Cephalexin (CEPHALEXIN) 500 Mg Tablet 1 TAB PO BID for 7 Days, #14 TAB 0 Refills Prov: DEYA PALMER APRN 09/29/18 Attending Signature Attending Signature I have reviewed the PA/COUNSELING SERVICES DIRECTOR's note and plan of care. I was available for consultation as needed during the patient's visit in the emergency department. I agree with the clinical impression, plan, and disposition. (JEFF KENDALL DO) Problem Qualifiers Primary Impression: UTI (urinary tract infection) Urinary tract infection type: site unspecified Hematuria presence: with hematuria Qualified Codes: N39.0 - Urinary tract infection, site not specified ; R31.9 - Hematuria, unspecified DEYA PALMER APRN Sep 29, 2018 10:04 JEFF KENDALL DO Sep 29, 2018 15:43
[2018-09-29 10:12] VITALS: BP 139/62
== END 2018-09-29 10:15 | disposition home or self-care (01) ==
LOC: ER 08:57
DX: N39.0 Urinary tract infection, site not specified (principal); I48.91 Unspecified atrial fibrillation; E78.00 Pure hypercholesterolemia, unspecified; I10 Essential (primary) hypertension; E11.40 Type 2 diabetes mellitus with diabetic neuropathy, unspecified; Z90.49 Acquired absence of other specified parts of digestive tract; Z90.710 Acquired absence of both cervix and uterus; Z95.1 Presence of aortocoronary bypass graft; Z95.0 Presence of cardiac pacemaker; E11.51 Type 2 diabetes mellitus with diabetic peripheral angiopathy without gangrene; Z88.5 Allergy status to narcotic agent; Z91.041 Radiographic dye allergy status
CPT/HCPCS: 81001; 99284

== ENCOUNTER 2018-11-19 12:05 | Emergency (ER) | payer OTHER ==
[~2018-11-19] VITALS: Ht 167.6 cm; Wt 96.6 kg
[~2018-11-19 12:05] MED LIST changes: -BUME2TAB PO; +BUME2TAB3 PO; +CEPH500T PO
[2018-11-19 14:06] LABS: BILIRUBIN,URINE NEGATIVE (NEG); CLARITY,URINE CLEAR; COLOR,URINE YELLOW; NITRITE,URINE NEGATIVE (NEG); PROTEIN,URINE NEGATIVE (NEG-TRACE); UROBILINOGEN,URINE 0.2 mg/dL (0.2 mg/dL)
[2018-11-19 14:12] LABS: SQUAMOUS EPITHELIAL CELL,UR MOD /LPF
[2018-11-19 14:13] LABS: BACTERIA,URINE FEW /HPF (0-FEW); WBC,URINE 20-40 /HPF (0-4)
[2018-11-19 14:14] LABS: RBC,URINE OCC /HPF (0-2)
--- NOTE | 2018-11-19 14:15 | RAD ---
EXAM: Head and cervical spine CT without contrast. HISTORY: Fall. TECHNIQUE: Computed tomographic images of the head and cervical spine were obtained without contrast. *One or more of the following individualized dose reduction techniques were utilized for this examination: 1. Automated exposure control. 2. Adjustment of the mA and/or kV according to patient size. 3. Use of iterative reconstruction technique. COMPARISON: 06/25/2018. FINDINGS: Head: There is no acute intracranial hemorrhage. There is a small right frontoparietal scalp hematoma and foci of soft tissue gas due to a suspected laceration. No foreign body or fracture is seen. There is no mass effect or midline shift. There is no hydrocephalus. There is cerebral volume loss. There is ethmoid sinus because of thickening. There is a left osiris bullosa. There are mastoidectomy changes. There is a small amount of mastoid fluid. Cervical spine: There is minimal anterolisthesis of C2 on C3. There is a chronic mild superior endplate depression with Schmorl's node at T1. No acute or subacute fracture is seen. There is degenerative endplate remodeling with disc space narrowing and osteophytosis at the majority of the cervical levels. There are multiple endplate Schmorl's nodes. There is suspected bone demineralization. There is right apical pleural-parenchymal scarring. At C2-C3, there is endplate remodeling. There is moderate left facet arthropathy. There is no stenosis. At C3-C4, there is a disc bulge and endplate remodeling. There is mild right facet arthropathy. There is mild right greater than left foraminal stenosis. At C4-C5, there is a right paracentral to foraminal disc osteophyte complex superimposed on a disc bulge and endplate osteophytosis. There is mild left facet arthropathy. There is right uncovertebral body. There is moderate right greater than left foraminal stenosis. At C5-C6, there is a right paracentral to foraminal disc osteophyte complex superimposed on a disc bulge and endplate osteophytosis. There is mild bilateral facet arthropathy. There is right uncovertebral body. There is moderate right and [id number] left foraminal stenosis. There is mild central canal stenosis. At C6-C7, there is a disc bulge with broad-based posterior central disc osteophyte complex superimposed on endplate remodeling. There is no stenosis. IMPRESSION: 1. No acute intracranial finding or evidence of acute cervical spine trauma. 2. Small right frontoparietal scalp hematoma and laceration. No foreign body or fracture is seen. 3. Decreased attenuation within the cerebral white matter, likely due to chronic small vessel disease. 4. Cerebral volume loss. 5. Multilevel degenerative change involving the cervical spine, described in detail above. 6. Chronic superior endplate depression with Schmorl's node at T1. Electronically signed by: Bijal Covarrubias MD (11/19/2018 2:12 PM) [place] [id number]
[2018-11-19] MEDS ORDERED: NITR100C62 PO (14:37)
--- NOTE | 2018-11-19 14:38 | PHYS DOC ---
Past Medical History Past Medical History: A-Fib, Arrhythmia, Diabetes-Type II, High Cholesterol, Hypertension, Renal Disease, Other Additional Past Medical Histor: NEUROPATHY,PAD Past Surgical History: Cholecystectomy, Coronary Bypass Surgery, Hysterectomy, Pacemaker Alcohol Use: None Drug Use: None Adult General Chief Complaint Chief Complaint: MECHANICAL FALL HPI HPI Patient is an 83-year-old female who presents after she slipped and fell falling backwards and hitting her head. She opened up a laceration to the back of her head. She did not lose consciousness at [place] she does complain of a headache and some neck pain. She has some nausea but otherwise really has no complaints. She denies any lateralizing neurologic weakness. She hasn't had any fever chills or sweats. There is report that she has chronic urinary tract infection and the family wonders if she may have fallen secondary to urinary tract infection.[] Review of Systems Review of Systems Constitutional: Denies fever or chills [] Eyes: Denies change in visual acuity, redness, or eye pain [] HENT: Denies nasal congestion or sore throat [] Respiratory: Denies cough or shortness of breath [] Cardiovascular: No additional information not addressed in HPI [] GI: Denies abdominal pain, nausea, vomiting, bloody stools or diarrhea [] : Denies dysuria or hematuria [] Musculoskeletal: Denies back pain or joint pain [] Integument: Laceration[] Neurologic: Per history of present illness] Endocrine: Denies polyuria or polydipsia [] All other systems were reviewed and found to be within normal limits, except as documented in this note. Allergies Allergies Allergies Coded Allergies Type Severity Reaction Last Updated Verified Iodinated Contrast- Oral and IV Dye Allergy Intermediate HIVES 09/03/15 Yes codeine Allergy Intermediate 12/18/17 No Physical Exam Physical Exam Constitutional: Well developed, well nourished, no acute distress, non-toxic appearance. [] HENT: Normocephalic, atraumatic, bilateral external ears normal, oropharynx moist, no oral exudates, nose normal. [] Eyes: PERRLA, EOMI, conjunctiva normal, no discharge. [] Neck: Normal range of motion, no tenderness, supple, no stridor. [] Cardiovascular:Heart rate regular rhythm, no murmur [] Lungs & Thorax: Bilateral breath sounds clear to auscultation [] Abdomen: Bowel sounds normal, soft, no tenderness, no masses, no pulsatile masses. [] Skin: Very small abrasion or less than 0.25 cm laceration to the right temporal arrival area of the scalp. [] Back: No tenderness, no CVA tenderness. [] Extremities: No tenderness, no cyanosis, no clubbing, ROM intact, no edema. [] Neurologic: Alert and oriented X 3, normal motor function, normal sensory function, no focal deficits noted. [] Psychologic: Affect normal, judgement normal, mood normal. [] Current Patient Data Vital Signs Vital Signs Date Time Temp Pulse Resp B/P (MAP) Pulse Ox O2 Delivery O2 Flow Rate FiO2 11/19/18 12:05 97.8 82 20 141/67 (91) 96 Room Air 97.8 Lab Values Laboratory Tests Test 11/19/18 13:50 Urine Collection Type Void Urine Color Yellow Urine Clarity Clear Urine pH 5.0 Urine Specific [place] 1.015 Urine Protein Negative mg/dL (NEG-TRACE) Urine Glucose (UA) >=1000 mg/dL (NEG) Urine Ketones (Stick) Negative mg/dL (NEG) Urine Blood Negative (NEG) Urine Nitrite Negative (NEG) Urine Bilirubin Negative (NEG) Urine Urobilinogen Dipstick 0.2 mg/dL (0.2 mg/dL) Urine Leukocyte Esterase Small (NEG) Urine RBC Occ /HPF (0-2) Urine WBC 20-40 /HPF (0-4) Urine Squamous Epithelial Cells Mod /LPF Urine Renal Epithelial Cells Occ /LPF Urine Bacteria Few /HPF (0-FEW) Urine Mucus Slight /LPF EKG EKG [] Radiology/Procedures Radiology/Procedures [] Impressions: REASON: fall - head and neck trauma PROCEDURE: CT HEAD AND CERVICAL SPINE WO EXAM: Head and cervical spine CT without contrast. HISTORY: Fall. TECHNIQUE: Computed tomographic images of the head and cervical spine were obtained without contrast. *One or more of the following individualized dose reduction techniques were utilized for this examination: 1. Automated exposure control. 2. Adjustment of the mA and/or kV according to patient size. 3. Use of iterative reconstruction technique. COMPARISON: 06/25/2018. FINDINGS: Head: There is no acute intracranial hemorrhage. There is a small right frontoparietal scalp hematoma and foci of soft tissue gas due to a suspected laceration. No foreign body or fracture is seen. There is no mass effect or midline shift. There is no hydrocephalus. There is cerebral volume loss. There is ethmoid sinus because of thickening. There is a left osiris bullosa. There are mastoidectomy changes. There is a small amount of mastoid fluid. Cervical spine: There is minimal anterolisthesis of C2 on C3. There is a chronic mild superior endplate depression with Schmorl's node at T1. No acute or subacute fracture is seen. There is degenerative endplate remodeling with disc space narrowing and osteophytosis at the majority of the cervical levels. There are multiple endplate Schmorl's nodes. There is suspected bone demineralization. There is right apical pleural-parenchymal scarring. At C2-C3, there is endplate remodeling. There is moderate left facet arthropathy. There is no stenosis. At C3-C4, there is a disc bulge and endplate remodeling. There is mild right facet arthropathy. There is mild right greater than left foraminal stenosis. At C4-C5, there is a right paracentral to foraminal disc osteophyte complex superimposed on a disc bulge and endplate osteophytosis. There is mild left facet arthropathy. There is right uncovertebral body. There is moderate right greater than left foraminal stenosis. At C5-C6, there is a right paracentral to foraminal disc osteophyte complex superimposed on a disc bulge and endplate osteophytosis. There is mild bilateral facet arthropathy. There is right uncovertebral body. There is moderate right and pnuk-mp-nwlfldzo left foraminal stenosis. There is mild central canal stenosis. At C6-C7, there is a disc bulge with broad-based posterior central disc osteophyte complex superimposed on endplate remodeling. There is no stenosis. IMPRESSION: 1. No acute intracranial finding or evidence of acute cervical spine trauma. 2. Small right frontoparietal scalp hematoma and laceration. No foreign body or fracture is seen. 3. Decreased attenuation within the cerebral white matter, likely due to chronic small vessel disease. 4. Cerebral volume loss. 5. Multilevel degenerative change involving the cervical spine, described in detail above. 6. Chronic superior endplate depression with Schmorl's node at T1. Course & Med Decision Making Course & Med Decision Making Pertinent Labs and Imaging studies reviewed. (See chart for details) [ED course: Evaluation reveals a small abrasion to the scalp. I did not feel it was large enough to warrant repair. I discussed this with the patient and her daughter and they agree.] Dragon Disclaimer Dragon Disclaimer This electronic medical record was generated, in whole or in part, using a voice recognition dictation system. Departure Departure Impression: Primary Impression: Scalp laceration Additional Impressions: Scalp contusion UTI (urinary tract infection) Disposition: HOME, SELF-CARE Condition: STABLE Referrals: RORO BARON MD (PCP) Patient Instructions: Head Injury, Adult, Urinary Tract Infection Additional Instructions: Return to the emergency department with any new or concerning symptoms Scripts Nitrofurantoin Monohyd/M-Cryst (MACROBID 100 MG CAPSULE) 100 Mg Capsule 1 CAP PO BID for UTI, #10 CAP Prov: GRACE RIVERS DO 11/19/18 Problem Qualifiers Primary Impression: Scalp laceration Encounter type: initial encounter Qualified Codes: S01.01XA - Laceration without foreign body of scalp, initial encounter Additional Impressions: Scalp contusion Encounter type: initial encounter Qualified Codes: S00.03XA - Contusion of scalp, initial encounter UTI (urinary tract infection) Urinary tract infection type: acute cystitis Hematuria presence: without hematuria Qualified Codes: N30.00 - Acute cystitis without hematuria GRACE RIVERS DO Nov 19, 2018 14:38
[2018-11-19 14:58] VITALS: BP 130/63
== END 2018-11-19 15:04 | disposition home or self-care (01) ==
LOC: ER 12:05
DX: S01.01XA Laceration without foreign body of scalp, initial encounter (principal); N30.00 Acute cystitis without hematuria; M47.892 Other spondylosis, cervical region; I48.91 Unspecified atrial fibrillation; E78.00 Pure hypercholesterolemia, unspecified; I10 Essential (primary) hypertension; E11.40 Type 2 diabetes mellitus with diabetic neuropathy, unspecified; Z90.710 Acquired absence of both cervix and uterus; Z95.0 Presence of cardiac pacemaker; Z95.1 Presence of aortocoronary bypass graft; Z90.49 Acquired absence of other specified parts of digestive tract; Z88.5 Allergy status to narcotic agent; Z91.041 Radiographic dye allergy status; W01.0XXA Fall on same level from slipping, tripping and stumbling without subsequent striking against object, initial encounter; Y93.89 Activity, other specified; Y92.89 Other specified places as the place of occurrence of the external cause; Y99.8 Other external cause status
CPT/HCPCS: 70450; 72125; 81001; 87086; 99284-25

== ENCOUNTER → 2019-01-08 | Outpatient (CLI) | payer OTHER ==
[~2019-01-08] MED LIST changes: +NITR100C62 PO
[2019-01-08 16:08] LABS: HEMATOCRIT 34.5 % (36.0-47.0); HEMOGLOBIN 11.5 g/dL (12.0-15.5)
[2019-01-08 17:02] LABS: ALBUMIN 3.2 g/dL (3.4-5.0); CALCIUM 8.9 mg/dL (8.5-10.1); CREATININE 1.4 mg/dL (0.6-1.0); GFR 35.9; PHOSPHORUS 4.3 mg/dL (2.6-4.7); POTASSIUM 3.8 mmol/L (3.5-5.1)
== END | disposition home or self-care (01) ==
LOC: LAB 15:42
PROVIDERS: ATTEND Family Medicine
DX: I13.0 Hypertensive heart and chronic kidney disease with heart failure and stage 1 through stage 4 chronic kidney disease, or unspecified chronic kidney disease (principal); E11.22 Type 2 diabetes mellitus with diabetic chronic kidney disease; I50.9 Heart failure, unspecified; N18.3 Chronic kidney disease, stage 3 (moderate)
CPT/HCPCS: 36415; 80069; 85014; 85018

== ENCOUNTER 2019-06-23 16:12 | Emergency (ER) | payer OTHER ==
[~2019-06-23] VITALS: Ht 165.1 cm; Wt 108.0 kg
[~2019-06-23 16:12] MED LIST changes: -DILT120C85 PO; +DILT120C99 PO; -GLIM1TAB2 PO; +GLIM1TAB3 PO
[2019-06-23] MEDS ORDERED: fentaNYL PF VIAL 100 MCG/2 ML VIAL IM ONE (16:45)
[2019-06-23 18:00] VITALS: BP 160/85
--- NOTE | 2019-06-23 18:01 | RAD ---
Exam: CT head, cervical, thoracic and lumbar spine INDICATION: Fall TECHNIQUE: Sequential axial images through the head, cervical, thoracic and lumbar spine were obtained without the administration of IV contrast. Comparisons: 12/18/2017 FINDINGS: Head: Stable hyperdense rounded lesion in the left frontal periventricular white matter. No focal parenchymal lesion or hemorrhage is identified. There is no midline shift or sulcal effacement. Patchy hypodensity within the periventricular and subcortical white matter. No acute vascular territory infarction is identified. Main-white distinction is preserved. The ventricular system is within normal limits without compression hydrocephalus. The basal cisterns are well maintained. The visualized portions of the paranasal sinuses and mastoid air cells are well-pneumatized. No acute fractures. Cervical spine: Vertebral body heights and alignment are well-maintained. Fracture to the cervical spine is not identified. Multilevel degenerative change throughout cervical spine with degenerative disc disease greatest at C3-C4, C4-C5, C5-C6 and C6-C7. There is mild bilateral facet arthropathy noted throughout cervical spine. Visualized paraspinal soft tissues are unremarkable. Thoracic spine: Vertebral body heights and alignment are well-maintained. Fracture to the thoracic spine is not identified. Mild degenerative disc disease is noted in the upper and mid thoracic spine. Pulmonary artery isn't enlarged. Strandy opacities noted within the lung bases. No pleural effusion. Lumbar spine: Mildly displaced fracture through the left transverse process of L1, and L2. Vertebral body heights are well-maintained. There is a grade 1 anterolisthesis of L4 on L5 and L5 on S1. Bilateral facet arthropathy is noted in the lower lumbar spine. Mild degenerative disc disease is noted greatest at L4-L5. Visualized paraspinal soft tissues are unremarkable. IMPRESSION: 1. No acute intracranial abnormality. 2. Negative CT C-spine for acute traumatic injury. 3. Negative CT T spine for acute traumatic injury. 4. Mildly displaced fracture through the left transverse process of L1 and L2. 5. Pulmonary artery is enlarged. Correlate for pulmonary arterial hypertension. Exposure: One or more of the following in the visualized dose reduction techniques were utilized for this examination: 1. Automated exposure control 2. Adjustment of the MA and/or KV according to patient size Use of iterative of reconstructive technique Electronically signed by: Tico Mejia MD (06/23/2019 5:57 PM) [facility] [id number]
--- NOTE | 2019-06-23 18:07 | RAD ---
Left hip 2 views with one view pelvis. HISTORY: Pain after a fall Single view was taken of the pelvis. There is no pelvic fracture. There is moderate stool in the right colon. There is no right hip fracture. AP and lateral views were taken of the left hip. There is a bipolar hip prosthesis in good position. There is no acute fracture. IMPRESSION: 1. No pelvic fracture noted. 2. Left hip prosthesis in good position. 3. No acute left hip fracture. Electronically signed by: Dat Molina MD (06/23/2019 6:04 PM) [id number]
[2019-06-23 18:43] LABS: BILIRUBIN,URINE NEGATIVE (NEG); CLARITY,URINE CLEAR; COLOR,URINE YELLOW; NITRITE,URINE NEGATIVE (NEG); PH,URINE 6.5; PROTEIN,URINE NEGATIVE (NEG-TRACE)
[2019-06-23 18:47] LABS: SQUAMOUS EPITHELIAL CELL,UR FEW /LPF
[2019-06-23 18:48] LABS: BACTERIA,URINE FEW /HPF (0-FEW); RBC,URINE OCC /HPF (0-2); WBC,URINE 20-40 /HPF (0-4)
[2019-06-23] MEDS ORDERED: CEPH500T PO (19:40)
--- NOTE | 2019-06-23 19:41 | PHYS DOC ---
Past Medical History Past Medical History: A-Fib, Arrhythmia, CAD, Diabetes-Type II, High Chol esterol, Heart Disease, Hypertension, Renal Disease, Other Additional Past Medical Histor: NEUROPATHY,PAD Past Surgical History: Cholecystectomy, Coronary Bypass Surgery, Hysterectomy, Pacemaker Alcohol Use: None Drug Use: None Adult General Chief Complaint Chief Complaint: MECHANICAL FALL HPI HPI Patient is a 84 year old in [place] with multiple chronic health conditions including chronic low back pain, kidney disease, hypertension, A. fib, chronic bilateral lower extremity weakness, who presents to the ED today to be evaluated status post falling on Sunday, patient states she has chronic weakness and she is not ambulatory, she states she got up to weigh herself on a scale, she stepped on the scale on the scale moved forward and she fell on her buttocks hitting her back on the commode. Patient denies any loss of consciousness. She states the pain is worse on touching her back. She rates the pain at 10 out of 10 described is as sharp and constant. Denies any pain radiating to bilateral lower extremities. Denies any loss of bowel bladder function. Review of Systems Review of Systems Constitutional: Denies fever or chills [] Eyes: Denies change in visual acuity, redness, or eye pain [] HENT: Denies nasal congestion or sore throat [] Respiratory: Denies cough or shortness of breath [] Cardiovascular: No additional information not addressed in HPI [] GI: Denies abdominal pain, nausea, vomiting, bloody stools or diarrhea [] : Denies dysuria or hematuria [] Musculoskeletal: Reports low back pain Integument: Denies rash or skin lesions [] Neurologic: Denies headache, focal weakness or sensory changes [] All other systems were reviewed and found to be within normal limits, except as documented in this note. Current Medications Current Medications Current Medications Medications (Trade) Dose Ordered Sig/[place]iley Start Time Stop Time Status Last Admin Dose Admin Fentanyl Citrate (Fentanyl 2ml Vial) 50 mcg 1X ONCE 06/23/19 16:45 06/23/19 16:46 DC 06/23/19 18:04 50 MCG Allergies Allergies Allergies Coded Allergies Type Severity Reaction Last Updated Verified Iodinated Contrast- Oral and IV Dye Allergy Intermediate HIVES 09/03/15 Yes codeine Allergy Intermediate 12/18/17 No Physical Exam Physical Exam Constitutional: Well developed, well nourished, no acute distress, non-toxic appearance. [] HENT: Normocephalic, atraumatic, bilateral external ears normal, oropharynx moist, no oral exudates, nose normal. [] Eyes: PERRLA, EOMI, conjunctiva normal, no discharge. [] Neck: Normal range of motion, no tenderness, supple, no stridor. [] Cardiovascular:Heart rate regular rhythm, no murmur [] Lungs & Thorax: Bilateral breath sounds clear to auscultation [] Abdomen: Bowel sounds normal, soft, no tenderness, no masses, no pulsatile masses. [] Skin: Bruising noted on the left mid and low back. Bruising also noted on the right hip. Back: Moderate tenderness on palpation of midline lumbar spine, no CVA tenderness. [] Extremities: No tenderness, no cyanosis, no clubbing, ROM intact, no edema. [] Neurologic: Alert and oriented X 3, normal motor function, normal sensory function, no focal deficits noted. [] Psychologic: Affect normal, judgement normal, mood normal. [] Current Patient Data Vital Signs Vital Signs Date Time Temp Pulse Resp B/P (MAP) Pulse Ox O2 Delivery O2 Flow Rate FiO2 06/23/19 16:14 98.0 81 18 153/72 (99) 94 Room Air 98.0 Lab Values Laboratory Tests Test 06/23/19 18:08 Urine Collection Type Unknown Urine Color Yellow Urine Clarity Clear Urine pH 6.5 Urine Specific [place] 1.010 Urine Protein Negative mg/dL (NEG-TRACE) Urine Glucose (UA) Negative mg/dL (NEG) Urine Ketones (Stick) Negative mg/dL (NEG) Urine Blood Negative (NEG) Urine Nitrite Negative (NEG) Urine Bilirubin Negative (NEG) Urine Urobilinogen Dipstick 1.0 mg/dL (0.2 mg/dL) Urine Leukocyte Esterase Moderate (NEG) Urine RBC Occ /HPF (0-2) Urine WBC 20-40 /HPF (0-4) Urine Squamous Epithelial Cells Few /LPF Urine Bacteria Few /HPF (0-FEW) Urine Mucus Slight /LPF EKG EKG [] Radiology/Procedures Radiology/Procedures []PROCEDURE: CT HEAD AND CERVICAL SPINE WO Exam: CT head, cervical, thoracic and lumbar spine INDICATION: Fall TECHNIQUE: Sequential axial images through the head, cervical, thoracic and lumbar spine were obtained without the administration of IV contrast. Comparisons: 12/18/2017 FINDINGS: Head: Stable hyperdense rounded lesion in the left frontal periventricular white matter. No focal parenchymal lesion or hemorrhage is identified. There is no midline shift or sulcal effacement. Patchy hypodensity within the periventricular and subcortical white matter. No acute vascular territory infarction is identified. Main-white distinction is preserved. The ventricular system is within normal limits without compression hydrocephalus. The basal cisterns are well maintained. The visualized portions of the paranasal sinuses and mastoid air cells are well-pneumatized. No acute fractures. Cervical spine: Vertebral body heights and alignment are well-maintained. Fracture to the cervical spine is not identified. Multilevel degenerative change throughout cervical spine with degenerative disc disease greatest at C3-C4, C4-C5, C5-C6 and C6-C7. There is mild bilateral facet arthropathy noted throughout cervical spine. Visualized paraspinal soft tissues are unremarkable. Thoracic spine: Vertebral body heights and alignment are well-maintained. Fracture to the thoracic spine is not identified. Mild degenerative disc disease is noted in the upper and mid thoracic spine. Pulmonary artery isn't enlarged. Strandy opacities noted within the lung bases. No pleural effusion. Lumbar spine: Mildly displaced fracture through the left transverse process of L1, and L2. Vertebral body heights are well-maintained. There is a grade 1 anterolisthesis of L4 on L5 and L5 on S1. Bilateral facet arthropathy is noted in the lower lumbar spine. Mild degenerative disc disease is noted greatest at L4-L5. Visualized paraspinal soft tissues are unremarkable. IMPRESSION: 1. No acute intracranial abnormality. 2. Negative CT C-spine for acute traumatic injury. 3. Negative CT T spine for acute traumatic injury. 4. Mildly displaced fracture through the left transverse process of L1 and L2. 5. Pulmonary artery is enlarged. Correlate for pulmonary arterial hypertension. Exposure: One or more of the following in the visualized dose reduction techniques were utilized for this examination: 1. Automated exposure control 2. Adjustment of the MA and/or KV according to patient size Use of iterative of reconstructive technique Electronically signed by: Tico Sharma MD (06/23/2019 5:57 PM) [facility] DICTATED and SIGNED BY: TICO SHARMA MD DATE: 06/23/19 1645 Course & Med Decision Making Course & Med Decision Making Pertinent Labs and Imaging studies reviewed. (See chart for details) This is a 84-year-old female patient who presents to the ED today to precipitate status post falling 3 days ago. She is nonambulatory, she states she normally uses a wheelchair and fell trying to weigh herself. No loss of consciousness. CT of the head, cervical spine, thoracic spine, no acute findings. CT of the lumbar spine-Mildly displaced fracture through the left transverse process of L1 and L2. Urine noted for UTI. Discharged back to the assisted living, she has a prescription for pain medicine at the [facility]. Give prescription for cephalexin. Dragon Disclaimer Dragon Disclaimer This electronic medical record was generated, in whole or in part, using a voice recognition dictation system. Departure Departure Impression: Primary Impression: UTI (urinary tract infection) Additional Impression: Lumbar transverse process fracture Disposition: 01 HOME, SELF-CARE Condition: STABLE Referrals: RORO BARON MD (PCP) follow up next week RONNIE GRAY MD follow next week Patient Instructions: Transverse Process Fracture, Urinary Tract Infection Additional Instructions: You were evaluated in the emergency room and noted to have-Mildly displaced fracture through the left transverse process of L1 and L2. You also have urinary tract infection. We highly recommended they give you your pain medicine 3 times a day and antibiotics prescribed until completed. Please follow-up with the neurosurgeon provided as well as your primary care doctor in the course of next week. COURTESY PLEASE TAKE MEALS TO HER ROOM FOR 3 DAYS Scripts Cephalexin (CEPHALEXIN) 500 Mg Tablet 1 TAB PO BID, #14 TAB Prov: JUAN MIGUEL PALMER APRN 06/23/19 Problem Qualifiers Primary Impression: UTI (urinary tract infection) Urinary tract infection type: site unspecified Hematuria presence: without hematuria Qualified Codes: N39.0 - Urinary tract infection, site not specified Additional Impression: Lumbar transverse process fracture Encounter type: initial encounter Fracture type: closed Qualified Codes: S32.009A - Unspecified fracture of unspecified lumbar vertebra, initial encounter for closed fracture NEALMARYBELJUAN MIGUEL Delarosa APRN Jun 23, 2019 19:41
== END 2019-06-23 19:57 | disposition home or self-care (01) ==
LOC: ER 16:12
DX: S32.018A Other fracture of first lumbar vertebra, initial encounter for closed fracture (principal); S32.028A Other fracture of second lumbar vertebra, initial encounter for closed fracture; N39.0 Urinary tract infection, site not specified; M25.552 Pain in left hip; M54.6 Pain in thoracic spine; R53.1 Weakness; G89.29 Other chronic pain; R51 Headache; I11.9 Hypertensive heart disease without heart failure; I48.91 Unspecified atrial fibrillation; I25.10 Atherosclerotic heart disease of native coronary artery without angina pectoris; E78.00 Pure hypercholesterolemia, unspecified; E11.40 Type 2 diabetes mellitus with diabetic neuropathy, unspecified; Z90.49 Acquired absence of other specified parts of digestive tract; Z90.710 Acquired absence of both cervix and uterus; Z95.0 Presence of cardiac pacemaker; Z95.1 Presence of aortocoronary bypass graft; Z88.5 Allergy status to narcotic agent; Z91.041 Radiographic dye allergy status; W18.39XA Other fall on same level, initial encounter; Y93.89 Activity, other specified; Y92.89 Other specified places as the place of occurrence of the external cause; Y99.8 Other external cause status
CPT/HCPCS: 70450; 72125; 72128; 72131; 73502; 81001; 87086; 96372; 99285; J3010

== ENCOUNTER → 2019-07-07 | Outpatient (CLI) | payer OTHER ==
[2019-06-23 18:00] VITALS: BP 160/85
[2019-07-07 11:35] LABS: HEMATOCRIT 42.3 % (36.0-47.0)
[2019-07-07 11:38] LABS: BILIRUBIN,URINE NEGATIVE (NEG); CLARITY,URINE CLEAR; COLOR,URINE YELLOW; NITRITE,URINE NEGATIVE (NEG); PROTEIN,URINE NEGATIVE (NEG-TRACE)
[2019-07-07 11:43] LABS: SQUAMOUS EPITHELIAL CELL,UR MANY /LPF
[2019-07-07 11:44] LABS: BACTERIA,URINE MODERATE /HPF (0-FEW); WBC,URINE 20-40 /HPF (0-4)
[2019-07-07 11:45] LABS: RBC,URINE OCC /HPF (0-2)
[2019-07-07 11:54] LABS: ALBUMIN 3.8 g/dL (3.4-5.0); CALCIUM 9.2 mg/dL (8.5-10.1); CREATININE 1.1 mg/dL (0.6-1.0); GFR 47.3; PHOSPHORUS 4.1 mg/dL (2.6-4.7); TOTAL BILIRUBIN 0.8 mg/dL (0.2-1.0); TOTAL PROTEIN 7.8 g/dL (6.4-8.2)
[2019-07-07 11:56] LABS: CHOLESTEROL/HDL RATIO 4.2
[2019-07-07 18:09] LABS: CREAT RD UR 28.7 mg/dL (Not Estab.); MICRO CREAT RATIO 231.4 mg/g creat (0.0-30.0); MICROALB RD UR 66.4 ug/mL (Not Estab.)
[2019-07-08 00:07] LABS: HEMOGLOBIN A1C 7.2 % (4.8-5.6)
== END | disposition home or self-care (01) ==
LOC: LAB 10:39
PROVIDERS: ATTEND Internal Medicine Nephrology
DX: E11.29 Type 2 diabetes mellitus with other diabetic kidney complication (principal); N18.3 Chronic kidney disease, stage 3 (moderate); N39.0 Urinary tract infection, site not specified
CPT/HCPCS: 36415; 80053; 80061; 81001; 82043; 82570; 83036; 84100; 85014; 85018; 87086